=== PATIENT | female | born 1995 | race American Indian/Alaskan Native ===

== ENCOUNTER 2023-01-04 15:19 | Emergency (ER) | payer BC ==
[2023-01-04 16:22] LABS: #Monocytes 1.5 thou/uL (0.11-0.59); #Neutrophils 13.5 thou/uL (1.40-6.50); %Basophils 0.2 % (0.0-1.0); %Lymphocytes 11.2 % (21.0-51.0); %Monocytes 9.1 % (0.0-10.0); Hemoglobin 11.1 g/dL (12.0-16.0); Mean Corpuscular HGB CONC 32.6 g/dL (32.0-36.0); Mean Corpuscular Hemoglobin 28.6 pg (27.0-31.0); Mean Corpuscular Volume 87.6 fl (78.0-98.0); Mean Platelet Volume 9.7 fL (7.4-10.4); Platelet Count 359 10x3/uL (130-400); RBC Distribution Width 13.8 % (11.5-14.5); Red Blood Cell (RBC) Count 3.88 mill/uL (4.20-5.40)
[2023-01-04 16:56] LABS: ALT (SGPT) 14 U/L (8-55); AST (SGOT) 22 U/L (5-34); Albumin 4.1 g/dL (3.5-5.0); Alkaline Phosphatase 54 U/L (40-110); Anion Gap 12 mmol/L (10-20); BUN (Urea Nitrogen) 6 mg/dL (7.0-18.7); Bilirubin, Total 0.5 mg/dL (0.2-1.2); Calc. Creatinine Clearance 0 mL/min (70-130); Calcium 8.6 mg/dL (7.8-10.44); Carbon Dioxide 21 mmol/L (22-29); Chloride 109 mmol/L (98-107); Estimated GFR 116; Globulin 2.8 g/dL (2.4-3.5); Glucose 108 mg/dL (70-105); Potassium 3.1 mmol/L (3.5-5.1); Protein, Total 6.9 g/dL (6.0-8.3); Sodium 139 mmol/L (136-145)
[2023-01-04] MEDS ORDERED: LORazepam 2 MG/ML SYR.(CARPUJECT) ONE (17:19)
[2023-01-04] MEDS ORDERED: Ondansetron PF 4 MG/2 ML Vial ONE (17:21)
[2023-01-04] MEDS ORDERED: Potassium Chloride 20 MEQ TAB ONE (17:59)
== END 2023-01-04 19:11 | disposition home or self-care (01) ==
LOC: ERS 15:19
DX: R11.2 Nausea with vomiting, unspecified (principal); E87.6 Hypokalemia; D72.829 Elevated white blood cell count, unspecified; F17.210 Nicotine dependence, cigarettes, uncomplicated
CPT/HCPCS: 36415; 80053; 85025; 96361; 96374; 96375; J2060; J2405

== ENCOUNTER 2023-11-23 05:40 | Emergency (ER) | payer SELFPAY ==
[2023-11-23] MEDS ORDERED: Ondansetron ODT 4 MG TAB ONE (06:15)
[2023-11-23] MEDS ORDERED: hydrOXYzine 25 MG TAB ONE (06:15)
[2023-11-23] MEDS ORDERED: ALPRAZolam 0.25 MG TAB ONE (06:52)
== END 2023-11-23 11:12 | disposition home or self-care (01) ==
LOC: ERS 05:40
DX: F41.0 Panic disorder [episodic paroxysmal anxiety] (principal)
CPT/HCPCS: 99283; Q0162

== ENCOUNTER 2023-12-13 19:39 | Emergency (ER) | payer SELFPAY ==
[2023-12-13] MEDS ORDERED: LORazepam 2 MG/ML SYR.(CARPUJECT) ONE (20:11)
[2023-12-13 20:21] LABS: #Basophils 0.08 10x3/uL (0.0-0.2); %Basophils 0.7 % (0.0-1.0); %Eosinophils 0.4 % (0.0-10.0); %Lymphocytes 18.1 % (21.0-51.0); %Monocytes 6.4 % (0.0-10.0); %Neutrophils 74.1 % (42.0-75.0); Hemoglobin 12.9 g/dL (12.0-16.0); Mean Corpuscular HGB CONC 34.9 g/dL (32.0-36.0); Mean Corpuscular Hemoglobin 30.5 pg (27.0-31.0); Mean Corpuscular Volume 87.5 fL (78.0-98.0); Platelet Count 415 10x3/uL (130-400); RBC Distribution Width 13.6 % (11.5-14.5); Red Blood Cell (RBC) Count 4.23 mill/uL (4.20-5.40)
[2023-12-13 20:29] LABS: BHCG - Serum Negative (NEGATIVE); Pregs Control Background? CLEAR/WHITE (CLR/WHITE); Pregs Control Bar Appear? YES (CONTROL BAR)
[2023-12-13 20:35] LABS: ALT (SGPT) 21 U/L (8-55); AST (SGOT) 30 U/L (5-34); Alkaline Phosphatase 52 U/L (40-110); Anion Gap 23 mmol/L (10-20); BUN (Urea Nitrogen) 7 mg/dL (7.0-18.7); Bilirubin, Total 0.5 mg/dL (0.2-1.2); Calc. Creatinine Clearance 0 mL/min (70-130); Calcium 9.3 mg/dL (7.8-10.44); Carbon Dioxide 14 mmol/L (22-29); Chloride 108 mmol/L (98-107); Estimated GFR 117; Globulin 3.5 g/dL (2.4-3.5); Glucose 93 mg/dL (70-105); Lipase 26 U/L (8-78); Potassium 3.7 mmol/L (3.5-5.1); Protein, Total 7.5 g/dL (6.0-8.3); Sodium 141 mmol/L (136-145)
== END 2023-12-14 01:09 | disposition home or self-care (01) ==
LOC: ERS 19:39
DX: F41.9 Anxiety disorder, unspecified (principal); F17.290 Nicotine dependence, other tobacco product, uncomplicated; F17.210 Nicotine dependence, cigarettes, uncomplicated
CPT/HCPCS: 36415; 80053; 83690; 84703; 85025; 96374; J2060

== ENCOUNTER 2023-12-15 15:34 | Emergency (ER) | payer SELFPAY ==
[2023-12-15] MEDS ORDERED: ALPRAZolam 0.25 MG TAB ONE (15:59)
== END 2023-12-15 16:32 | disposition home or self-care (01) ==
LOC: ERS 15:34
DX: F41.9 Anxiety disorder, unspecified (principal); F17.290 Nicotine dependence, other tobacco product, uncomplicated
CPT/HCPCS: 93005

== ENCOUNTER 2023-12-29 01:23 | Emergency (ER) | payer SELFPAY | END 2023-12-29 02:08 | disposition home or self-care (01) | LOC: ERS 01:23 | DX: F41.1 Generalized anxiety disorder (principal); F10.129 Alcohol abuse with intoxication, unspecified; F17.210 Nicotine dependence, cigarettes, uncomplicated | CPT/HCPCS: 93005 ==

== ENCOUNTER 2024-01-11 04:54 | Emergency (ER) | payer SELFPAY | END 2024-01-11 09:01 | disposition home or self-care (01) | LOC: ERS 04:54 | DX: F10.10 Alcohol abuse, uncomplicated (principal); F41.9 Anxiety disorder, unspecified; F17.210 Nicotine dependence, cigarettes, uncomplicated; F17.290 Nicotine dependence, other tobacco product, uncomplicated | CPT/HCPCS: 99284 ==

== ENCOUNTER 2024-01-13 02:27 | Emergency (ER) | payer SELFPAY | END 2024-01-13 03:00 | disposition home or self-care (01) | LOC: ERS 02:27 | DX: F10.129 Alcohol abuse with intoxication, unspecified (principal); F41.9 Anxiety disorder, unspecified; F17.210 Nicotine dependence, cigarettes, uncomplicated | CPT/HCPCS: 99284 ==

== ENCOUNTER 2024-01-18 06:36 | Emergency (ER) | payer SELFPAY ==
[2024-01-18 07:48] LABS: Amphetamine Not Detected (NotDetected); Barbiturates Screen Not Detected (NotDetected); Benzodiazepine Screen Not Detected (NotDetected); Cocaine Metabolite Screen Detected (NotDetected); Methadone Not Detected (NotDetected); Methamphetamine Not Detected (NotDetected); Opiate Screen Not Detected (NotDetected); Oxycodone Screen Not Detected (NotDetected); Phencyclidine (PCP) Not Detected (NotDetected); THC/Cannabinoid Screen Detected (NotDetected); Tricyclic Screen Not Detected (NotDetected)
[2024-01-18 07:50] LABS: Bilirubin Negative (Negative); Blood, Urine Trace (Negative); Clarity Clear (Clear); Glucose, Urine (Dipstick) Normal (Negative); Ketone, Urine Negative (Negative); Leukocyte Negative Leu/uL (Negative); Nitrite Negative (Negative); Protein, Urine (Dipstick) Negative (Neg-Trace); RBC/HPF None Seen HPF (0-3); Specific Gravity, Urine 1.008 (1.002-1.036); Squamous Epithelial 0-3 HPF (0-3); Urobilinogen Normal mg/dL (Less than 2); WBC/HPF None Seen HPF (0-3); pH, Urine 5.5 (5.0-9.0)
[2024-01-18 07:54] LABS: Bacteria/HPF 1+ HPF (None Seen)
== END 2024-01-18 07:58 | disposition home or self-care (01) ==
LOC: ERS 06:36
DX: F14.10 Cocaine abuse, uncomplicated (principal); F12.10 Cannabis abuse, uncomplicated; F17.210 Nicotine dependence, cigarettes, uncomplicated; F17.290 Nicotine dependence, other tobacco product, uncomplicated
CPT/HCPCS: 80306; 81001; 99284

== ENCOUNTER 2024-01-22 02:46 | Emergency (ER) | payer SELFPAY | END 2024-01-22 03:40 | disposition home or self-care (01) | LOC: ERS 02:46 | DX: R06.02 Shortness of breath (principal) ==